=== PATIENT | male | born 1935 | race Caucasian/White ===

== ENCOUNTER → 2018-08-19 | Outpatient (CLI) | payer OTHER ==
[~2018-08-19] MED LIST: CARV6.25 PO; DICL100ER PO; DIFL500 PO; DOCU100 PO; ENTRESTO 24 MG1 EACH; Flecainide Ace150 MG PO; Flecainide Acet50 MG PO; HYDACE5; HYDACE5 PO; HYDR1TAB94; Hydrocodone-Ap1 EA23; LOSA25 PO; METF500 PO; Omeprazole20 M1; PIRO20; PIRO20 PO; TAMS.4ER PO; VITAMIN D PO; WARF2 PO; WARF2.5 PO; WARF3 PO; WARF5 PO; ZOLP10 PO
== END | disposition home or self-care (01) ==
LOC: PLD 15:05 → LAB SHORT 15:05
DX: D48.5 Neoplasm of uncertain behavior of skin (principal)
CPT/HCPCS: 88305

== ENCOUNTER 2020-09-08 09:12 | Day surgery (SDC) | payer OTHER ==
[~2020-09-08] VITALS: Ht 177.8 cm; Wt 89.0 kg
[~2020-09-08 09:12] MED LIST changes: +ALBU90OI INH; +ELIQUIS2.5 MG PO; +MAGNESIUM OXID500 MG PO; +MULVITA PO; +OMEP20ER PO; +Vitamin D2000 UNIT PO; +ZINC15 PO
[2020-09-08] MEDS ORDERED: CARV3.125 PO (09:58)
[2020-09-08] MEDS ORDERED: Norco 5-325 Ta1 EACH PO (10:00)
--- NOTE | 2020-09-08 11:30 | NUR ---
PATIENT RETURNED FROM THE [facility] VIA RECLINER. SBAR RECEIVED FROM THE IMAN WARREN. TR BAND WITH 13 ML OF AIR AT 1119.
--- NOTE | 2020-09-08 12:02 | NUR ---
DR. MADDOX AT THE BEDSIDE AND SPOKE WITH THE PATIENT AND .
--- NOTE | 2020-09-08 14:39 | NUR ---
DISCHARGE PT REMAINED A&OX3 AND DENIED ANY PAIN DURING RECOVERY. RIGHT RADIAL SITE-TR BAND REMOVED, WHITE BOARD AND CLOTH DOT BANDAGE IN PLACE-CDI NO HEMATOMA NOTED. IV DC'D WITH CANULA IN TACT. DISCHARGE PAPERWORK GONE OVER WITH PT AND SPOUSE. PT AND SOUSE VERBALLY STATED THE UNDERSTANDING OF THE DISCHARGE EDUCATION AND DENIED ANY QUESTIONS AT THIS TIME. PT ABLE TO DRESS SELF WITH LITTLE ASSISTANCE. PT WHEELED OUT BY THIS NURSE.
== END 2020-09-08 15:00 | disposition home or self-care (01) ==
LOC: MHTC 09:12
DX: I25.10 Atherosclerotic heart disease of native coronary artery without angina pectoris (principal); I42.8 Other cardiomyopathies; I48.0 Paroxysmal atrial fibrillation; I50.9 Heart failure, unspecified; J84.10 Pulmonary fibrosis, unspecified; N18.9 Chronic kidney disease, unspecified; E66.3 Overweight; Z85.6 Personal history of leukemia; Z92.21 Personal history of antineoplastic chemotherapy; Z87.891 Personal history of nicotine dependence; Z88.7 Allergy status to serum and vaccine; Z88.8 Allergy status to other drugs, medicaments and biological substances; Z79.01 Long term (current) use of anticoagulants; Z82.49 Family history of ischemic heart disease and other diseases of the circulatory system; Z68.28 Body mass index [BMI] 28.0-28.9, adult; Z95.0 Presence of cardiac pacemaker
CPT/HCPCS: 76937; 85347; 93458; 93571; 99152; 99153; A9270; C1769; C1887; C1894; J1644; J2250; J2370; J3010; J7030; J7050; Q9967

== ENCOUNTER 2020-10-18 00:08 | Day surgery (SDC) | payer OTHER ==
[~2020-10-18 00:08] MED LIST changes: +CARV3.125 PO; +Norco 5-325 Ta1 EACH PO
== END 2020-10-18 22:41 | disposition home or self-care (01) ==
LOC: WOUND 00:08
DX: L89.312 Pressure ulcer of right buttock, stage 2 (principal); Z88.8 Allergy status to other drugs, medicaments and biological substances; Z88.7 Allergy status to serum and vaccine; Z87.891 Personal history of nicotine dependence
CPT/HCPCS: A9270; G0463

== ENCOUNTER 2020-10-25 00:12 | Day surgery (SDC) | payer OTHER | END 2020-10-25 22:47 | disposition home or self-care (01) | LOC: WOUND 00:12 | DX: L89.312 Pressure ulcer of right buttock, stage 2 (principal); I42.9 Cardiomyopathy, unspecified; J84.10 Pulmonary fibrosis, unspecified | CPT/HCPCS: A9270 ==

== ENCOUNTER 2020-11-01 00:11 | Day surgery (SDC) | payer OTHER | END 2020-11-01 22:55 | disposition home or self-care (01) | LOC: WOUND 00:11 | DX: L89.312 Pressure ulcer of right buttock, stage 2 (principal) | CPT/HCPCS: A9270 ==

== ENCOUNTER 2020-11-15 00:37 | Day surgery (SDC) | payer OTHER | END 2020-11-15 22:53 | disposition home or self-care (01) | LOC: WOUND 00:37 | DX: L89.312 Pressure ulcer of right buttock, stage 2 (principal) | CPT/HCPCS: A9270 ==

== ENCOUNTER 2020-11-22 01:04 | Day surgery (SDC) | payer OTHER | END 2020-11-22 23:05 | disposition home or self-care (01) | LOC: WOUND 01:04 | DX: L89.312 Pressure ulcer of right buttock, stage 2 (principal) | CPT/HCPCS: A9270; G0463 ==

== ENCOUNTER 2020-12-06 00:39 | Day surgery (SDC) | payer OTHER | END 2020-12-06 23:31 | disposition home or self-care (01) | LOC: WOUND 00:39 | DX: L89.312 Pressure ulcer of right buttock, stage 2 (principal); I42.9 Cardiomyopathy, unspecified; J84.10 Pulmonary fibrosis, unspecified | CPT/HCPCS: A9270; G0463 ==

== ENCOUNTER 2020-12-20 08:00 | Day surgery (SDC) | payer OTHER | END 2020-12-20 23:00 | disposition home or self-care (01) | LOC: WOUND | DX: L89.312 Pressure ulcer of right buttock, stage 2 (principal) | CPT/HCPCS: G0463 ==

== ENCOUNTER → 2022-06-29 | Outpatient (CLI) | payer OTHER | END | disposition home or self-care (01) | LOC: PLD 15:14 → LAB SHORT 15:14 | DX: C44.42 Squamous cell carcinoma of skin of scalp and neck (principal) | CPT/HCPCS: 88305 ==

== ENCOUNTER → 2022-12-15 | Outpatient (CLI) | payer OTHER ==
[2022-12-15 23:09] LABS: Creatinine, Urine Random 51.9 mg/dL (27.00-270.00); Protein, Urine Random 7.6 mg/dL (0.0-11.9); Protein/Creat Ratio, Ur Random 0.1
== END | disposition home or self-care (01) ==
LOC: LAB SHORT 12:00 → LAB 12:00
PROVIDERS: Internal Medicine Nephrology
DX: N18.32 Chronic kidney disease, stage 3b (principal)
CPT/HCPCS: 82570; 84156

== ENCOUNTER → 2023-01-31 | Outpatient (CLI) | payer OTHER | END | disposition home or self-care (01) | LOC: PLD 15:20 → LAB 15:20 → LAB SHORT 15:20 | DX: D48.5 Neoplasm of uncertain behavior of skin (principal) | CPT/HCPCS: 88305 ==

== ENCOUNTER → 2023-04-04 | Outpatient (CLI) | payer OTHER | LOC: LAB 15:01 → LAB SHORT 15:01 | DX: L08.0 Pyoderma (principal) | CPT/HCPCS: 87070; 87077; 87147; 87186; 87205 ==

== ENCOUNTER → 2023-07-10 | Outpatient (CLI) | payer OTHER | LOC: LAB SHORT 11:43 → LAB 11:43 | DX: D48.5 Neoplasm of uncertain behavior of skin (principal) | CPT/HCPCS: 88305 ==

== ENCOUNTER 2024-01-14 11:21 | Observation (INO) | payer OTHER ==
[~2024-01-14] VITALS: Ht 177.8 cm; Wt 87.9 kg
[~2024-01-14 11:21] MED LIST changes: -ENTRESTO 24 MG1 EACH; +ENTRESTO 49 MG1 EAC3 PO; -PIRO20
[2024-01-14] MEDS ORDERED: Dextrose 50% 50 ML Vial IV ONE (12:40)
[2024-01-14] MEDS ORDERED: Insulin Regular 100 Unit/ML 1ML Dose IV ONE (12:40)
[2024-01-14] MEDS ORDERED: CALCIUM GLUC IN NACL, ISO-OSM 50 ML IV ONE (12:50)
[2024-01-14] MEDS ORDERED: Furosemide 10 MG / ML 2ML Vial IV ONE (13:30)
[2024-01-14] MEDS ORDERED: OxyCODONE HCL 5 MG TAB PO PRN (15:00)
[2024-01-14] MEDS ORDERED: Acetaminophen 325 MG TABLET PO PRN (15:00)
--- NOTE | 2024-01-14 16:59 | NUR ---
RECEIVED REPORT FROM IMAN MOORE, IN ED.
[2024-01-14] MEDS ORDERED: Carvedilol 3.125 MG Tab PO SCH (17:00)
[2024-01-14 17:26] VITALS: BP 93/82
[2024-01-14] MEDS ORDERED: TORSE20 PO (18:00)
[2024-01-14] MEDS ORDERED: Bumetanide 0.25 MG/ML 4ML ViaL IV SCH (18:00)
--- NOTE | 2024-01-14 19:10 | NUR ---
DAY SHIFT SUMMARY: A&Ox4. PLEASANT AND COOPEARTIVE WITH CARE. CALLS APPROPRIATELY AND IS ABLE TO ADVOCATE NEEDS EFFECTIVELY. AMBULATES INDEPENDENTLY AT BASELINE; RECOMMEND SBA SINCE SLIGHTLY UNSTEADY ON FEET TODAY. IV DIURETICS WITH STRICT I/Os. MEDS WHOLE WITH FLUIDS. O2 2-3LPM/NC. TELE PACED @ 60. AND SISTER AT BEDSIDE FROM ADMIT TO THIS EVENING. MEDICATED PRN PAIN x1. C/O IV IRRITATING HIM; LET HIM KNOW IT MAY NEED TO BE CHANGED IF TOO BOTHERSOME, BUT HE STATES HED' RATHER "DEAL WITH IT" IT'S ONLY WHEN BENDING ARM TO EAT. DR CAMPOS CONSULTED VIA TELEHEALTH. BED IN LOWEST POSITION. CALL LIGHT WITHIN REACH. ALL NEEDS MET. REPORT TO ONCOMING RN.
[2024-01-14 19:24] VITALS: BP 110/57
[2024-01-14] MEDS ORDERED: Sacubitril/Valsartan 24 MG-26 MG Tab PO SCH (21:00)
[2024-01-14] MEDS ORDERED: Apixaban 5 MG Tab PO SCH (21:00)
[2024-01-14] MEDS ORDERED: HYDROcodone 5-APAP 325 TAB PO PRN (22:05)
[2024-01-14] MEDS ORDERED: Melatonin 5 MG Tablet PO ONE (23:05)
--- NOTE | 2024-01-15 04:02 | NUR ---
@HS, THIS CRYPTOGRAPHER CALLED THE ON-CALL HOSPITALIST, SUBHA. PER PT REPORT, HIS HOME MED INCLUDES PO NORCO 5/325MG Q6 PRN (CHRONIC BACK PAIN, HX OF BACK SURGERIES.) PER MACY WALTERS'S T-ORDER:"D/C OXYCODONE 5MG PO Q6PRN, NEW ORDER: NORCO 5/325MG PO Q6 PRN, AND NEW ORDER: MELATONIN 5MG PO QHS PRN." ORDERS ENTERED TO [employer]/[facility]. PT REQUESTED MELATONIN AND NORCO AT HS, GOOD EFFECTIVNESS. NO OTHER NEW ORDERS AT THIS TIME.
--- NOTE | 2024-01-15 04:08 | NUR ---
SHIFT SUMMARY PT IS A&O X4, ABLE TO MAKE HIS NEEDS KNOWN, COOP WITH CARE. PT AMBULATES INDEPENDENTLY IN THE HOSPITAL ROOM AND USES THE RESTROOM. URINAL BY THE BEDSIDE. EDEMA LE BILATERALLY 2+, NON PITTING. PRN NORCO 5/325MG ADMINISTERED AT HS (SEE PREVIOUS NOTE FOR PAIN MED CHANGES,) AND MELATONIN 5MG PO ORDERED. PER PT REPORT, HX OF BACK SURGERIES, AND REPORTS CHRONIC BACK PAIN 11/18. PT IS ON O2@ 2L VIA NC. LUNGS DIMINISHED PER AUSCULTATION, NO COUGH NOTED/REPORTED. PT DENIES SOB DURING THIS SHIFT, O2 SAT'S>94. NO ACUTE EVENTS DURING THIS SHIFT, CALL LIGHT WITHIN REACH. URINE LAB COLLECTED AND SENT TO LAB AT HS.
[2024-01-15 05:01] VITALS: BP 111/80
[2024-01-15 05:46] LABS: BASOPHILS ABSOLUTE AUTO 0.03 K/mm3 (0.00-0.23); BASOPHILS PERCENT AUTO 0 % (0-2); EOSINOPHILS ABSOLUTE AUTO 0.18 K/mm3 (0.00-0.68); EOSINOPHILS PERCENT AUTO 2 % (0-6); Hematocrit 36.3 % (37.0-53.0); Hemoglobin 11.1 g/dL (13.5-17.5); IMMATURE GRAN ABSOLUTE AUTO 0.02 K/mm3 (0.00-0.10); IMMATURE GRAN PERCENT AUTO 0 % (0-1); LYMPHOCYTES ABSOLUTE AUTO 2.75 K/mm3 (0.84-5.20); LYMPHOCYTES PERCENT AUTO 34 % (21-46); MONOCYTES ABSOLUTE AUTO 1.04 K/mm3 (0.16-1.47); MONOCYTES PERCENT AUTO 13 % (4-13); Mean Corpuscular HGB 28.4 pg (26.0-34.0); Mean Corpuscular HGB Conc 30.6 g/dL (31.5-36.5); Mean Corpuscular Volume 93 fL (80-100); Mean Platelet Volume 9.8 fL (9.1-12.4); NEUTROPHILS ABSOLUTE AUTO 4.04 K/mm3 (1.96-9.15); NEUTROPHILS PERCENT AUTO 50 % (41-73); Platelet Count 150 K/mm3 (150-400); RDW Coefficient Variation 14.6 % (11.7-14.2); RDW Standard Deviation 49.7 fL (35.1-46.3); Red Blood Cell Count 3.91 M/mm3 (4.30-5.90); White Blood Cell Count 8.06 K/mm3 (4.00-11.30)
[2024-01-15 06:16] LABS: Albumin, Blood 3.5 g/dL (3.4-5.0); Anion Gap 7 mmol/L (3-11); Blood Urea Nitrogen 50 mg/dL (8-24); Bun/Creatinine Ratio 18.8 (12.0-20.0); CO2, Blood 32 mmol/L (21-32); Calcium, Blood 9.2 mg/dL (8.5-10.1); Chloride, Blood 104 mmol/L (98-108); Creatinine, Blood 2.66 mg/dL (0.60-1.20); Glomerular Filtration Rate 23 (60-); Glucose, Blood 99 mg/dL (70-99); Potassium, Blood 5.3 mmol/L (3.5-5.5); Sodium, Blood 138 mmol/L (136-145)
[2024-01-15 07:54] VITALS: BP 114/65
[2024-01-15 15:08] VITALS: BP 100/76
[2024-01-15 19:22] VITALS: BP 105/64
--- NOTE | 2024-01-15 19:36 | NUR ---
SHIFT SUMMARY: PT IS A/O X 4, IND IN ROOM PLEASANT AND COOOPERATIVE. PT CONTINUES TO BE ON 2.5 LPM VIA NC WHICH IS HIS BASELINE O2 NEEDS. PT REPORTS EDEMA TO BLE EXT MUCH IMPROVED. PT TOLERATING PO INTAKE WELL. WORKED WITH PT TODAY AND RECOMMENDED HH.
[2024-01-15] MEDS ORDERED: Melatonin 5 MG Tablet PO SCH (21:00)
[2024-01-16 02:23] VITALS: BP 107/53
--- NOTE | 2024-01-16 03:09 | NUR ---
SHIFT SUMMARY PT REPORTED THAT WORKED HARD WITH PT DURING PREVIOUS SHIFT, AND FOLLOWED PT ORDERS AND EXERCISED INDEPENDENTLY IN THE HOSPITAL ROOM WELL. C/O LEG AND LOWER BACK PAIN, MEDICATED X2 WITH NORCO, AND X1 WITH TYLENOL DURING THIS SHIFT. 02 VIA NC 2L. NO ACUTE EVENTS DURING THIS SHIFT. PT HAS HAD BROKEN SLEEP DURING THIS SHIFT. CALL LIGHT IN REACH.
--- NOTE | 2024-01-16 06:37 | NUR ---
PT CONTINUES TO HAVE A GOOD URINE OUTPUT, PER COMPUTER TECHNOLOGY TRAINER ON THIS SHIFT:>1.5LITERS.
[2024-01-16 07:13] VITALS: BP 110/61
[2024-01-16] MEDS ORDERED: Ipratropium/Albuterol SulF 2.5-0.5MG/3 ML Amp INH SCH (09:25)
[2024-01-16 12:26] LABS: Albumin, Blood 3.3 g/dL (3.4-5.0); Anion Gap 7 mmol/L (3-11); Blood Urea Nitrogen 47 mg/dL (8-24); Bun/Creatinine Ratio 19.3 (12.0-20.0); CO2, Blood 32 mmol/L (21-32); Calcium, Blood 8.8 mg/dL (8.5-10.1); Chloride, Blood 102 mmol/L (98-108); Creatinine, Blood 2.44 mg/dL (0.60-1.20); Glomerular Filtration Rate 25 (60-); Glucose, Blood 155 mg/dL (70-99); Phosphorus, Blood 4.1 mg/dL (2.5-4.9); Potassium, Blood 4.5 mmol/L (3.5-5.5); Sodium, Blood 136 mmol/L (136-145)
[2024-01-16 12:53] VITALS: BP 109/71
--- NOTE | 2024-01-16 12:57 | NUR ---
CALL CALL FROM [employer] THAT PT HAD 9 BEAT RUN VTACH. PT RESTING, DENIES ANY NEW SYMPTOMS OR CONCERNS, NO PAIN, NO SOB. VITAL SIGNS STABLE. DR GRACIA NOTIFIED. NO NEW ORDERS.
[2024-01-16 15:03] VITALS: BP 112/52
[2024-01-16] MEDS ORDERED: Polyethylene Glycol 3350 17 gm PO PRN (17:40)
--- NOTE | 2024-01-16 17:56 | NUR ---
SHIFT SUMMARY MR DAUGHERTY WAS EDUCATED ON INCENTIVE SPIROMETRY USE - 500CC WITH GOOD TECHNIQUE. UP TO BATHROOM INDEPENDENTLY WITH GOOD UOP. HE C/O CHRONIC BACK PAIN, MEDICATED WITH NORCO AND TYLENOL WITH SOME RELIEF. ON TELEMETRY - PACED WITH 9 BEAT RUN OF VTACH. AT THE TIME MR DAUGHERTY WAS NOT EXPERIENCING ANY NEW SYMPTOMS AND VITAL SIGNS WERE STABLE. MR DAUGHERTY IS ON 2-3L O2 NASAL CANNULA AT HOME WHEN HE'S SLEEPING OR EXERTING HIMSELF. HE HAS BEEN ON ROOM AIR TODAY AND USES 2L N/C WHEN HE FEELS SHORT OF BREATH ON AND OFF. BED LOW, CALL LIGHT IN REACH.
[2024-01-16 19:32] VITALS: BP 112/59
[2024-01-16] MEDS ORDERED: Torsemide 20 MG TAB PO SCH (21:00)
[2024-01-16] MEDS ORDERED: Docusate Sodium 100 MG Cap PO SCH (21:00)
[2024-01-17 03:14] VITALS: BP 122/88
--- NOTE | 2024-01-17 05:32 | NUR ---
SHIFT SUMMARY PT A&Ox4 AND PLEASANT. NO ACUTE CHANGES. PT MEDICATD FOR PAIN PER [facility]. ASSISTED PT WITH HEAT PACK FOR BACK PAIN AT HS. PT ON 2L OF OXYGEN DURING THE NIGHT. VSS. BED IN LOWEST POSITION AND CALL LIGHT IN REACH.
[2024-01-17 06:51] LABS: Albumin, Blood 3.3 g/dL (3.4-5.0); Anion Gap 11 mmol/L (3-11); Blood Urea Nitrogen 46 mg/dL (8-24); CO2, Blood 30 mmol/L (21-32); Calcium, Blood 8.4 mg/dL (8.5-10.1); Chloride, Blood 101 mmol/L (98-108); Creatinine, Blood 2.56 mg/dL (0.60-1.20); Glomerular Filtration Rate 24 (60-); Glucose, Blood 98 mg/dL (70-99); Magnesium, Blood 2.1 mg/dL (1.6-2.4); Phosphorus, Blood 5.2 mg/dL (2.5-4.9); Sodium, Blood 137 mmol/L (136-145)
[2024-01-17 07:38] VITALS: BP 103/59
[2024-01-17 08:10] VITALS: BP 108/62
[2024-01-17] MEDS ORDERED: MIRALAX17 GM PO (11:31)
--- NOTE | 2024-01-17 13:02 | NUR ---
SHIFT/DISCHARGE SUMMARY: PATIENT A/OX4, CALM, PLEASANT AND COOPERATIVE c CARE. PATIENT REPORTS CHRONIC BACK PAIN, MEDICATED c [facility] PAIN MEDS c GOOD RELIEF. PATIENT DENIES CP/PRESSURE, SOB, N/V AND DIZZINESS. PATIENT HAS NO EVENT ON TELE, VPACED HR IN THE LOW 60'S BPM c OCCASIONAL PVC. PATIENT USES O2 AT HS 2-3L NC, RA, LUNGS HAS FINE CRACKLES TO THE BASES. PATIENT RECEIVED SCHEDULED MEDS PER [facility]. PATIENT HAS GOOD APPETITE, CONTINENT OF BLADDER, AMBULATES TO BATHROOM INDEPENDENTLY T/O THE DAY. PIV DC'D BY [employer] MEDIA SPECIALIST. PATIENT DISCHARGE HOME. DISCHARGE INSTRUCTIONS PACKET GIVEN TO PATIENT. EDUCATED PATIENT REGARDING ADMITTING DX'S OF ACUTE RESP FAILURE c HYPOXIA, S/S, TX, SELF CARE, NEW PRESCRIBED RX AND TO F/U c PCP AND NEPHROLOGY. PATIENT VERBALIZED UNDERSTANDING AND NO FURTHER QUESTIONS AT THIS TIME. RX WAS FAXED TO PATIENT PREFERRED PHARMACY. ALL PATIENT PERSONAL BELONGINGS WERE SENT HOME c THE PATIENT. PATIENT LEFT THE ROOM AT 1302, TRANSPORTED VIA WHEELCHAIR BY [employer] TO PATIENT ENTRANCE.
== END 2024-01-17 13:01 | disposition home or self-care (01) ==
LOC: ER 11:21 → ERHOLD 11:22 → MEDS 11:22
PROVIDERS: Internal Medicine Nephrology; ADMIT Internal Medicine
DX: I13.0 Hypertensive heart and chronic kidney disease with heart failure and stage 1 through stage 4 chronic kidney disease, or unspecified chronic kidney disease (principal); I50.43 Acute on chronic combined systolic (congestive) and diastolic (congestive) heart failure; N18.30 Chronic kidney disease, stage 3 unspecified; J96.21 Acute and chronic respiratory failure with hypoxia; N17.9 Acute kidney failure, unspecified; E87.5 Hyperkalemia; J84.10 Pulmonary fibrosis, unspecified; I47.20 Ventricular tachycardia, unspecified; G89.29 Other chronic pain; M54.9 Dorsalgia, unspecified; I48.91 Unspecified atrial fibrillation; I27.20 Pulmonary hypertension, unspecified; I07.1 Rheumatic tricuspid insufficiency; Z88.7 Allergy status to serum and vaccine; Z88.8 Allergy status to other drugs, medicaments and biological substances; Z79.01 Long term (current) use of anticoagulants; Z79.899 Other long term (current) drug therapy; J84.9 Interstitial pulmonary disease, unspecified; R91.8 Other nonspecific abnormal finding of lung field; I50.9 Heart failure, unspecified
CPT/HCPCS: 36415; 71046; 80053; 80069; 82570; 83735; 83880; 84145; 84156; 84484; 85025; 93005; 93010; 93306; 94640; 94664; 94760; 96374-59; 96375; 96375-59; 96376; 97110; 97116; 97161; 99285-25; A9270; G0378; J0612; J1815; J1940; J7799

== ENCOUNTER 2024-05-08 17:46 | Emergency (ER) | payer OTHER ==
[~2024-05-08] VITALS: Ht 175.3 cm; Wt 70.3 kg
[~2024-05-08 17:46] MED LIST changes: +MIRALAX17 GM PO; +TORSE20 PO
[2024-05-08] MEDS ORDERED: Calcium Chloride 10% 10 ML SYR IV ONE (20:32)
[2024-05-08] MEDS ORDERED: Sodium Bicarb 8.4% 50 mEq Syringe IV ONE (20:32)
[2024-05-08] MEDS ORDERED: Amiodarone HCl 50 MG / ML 3 ML Amp IV ONE (20:32)
[2024-05-08] MEDS ORDERED: EPINEPhrine HCl 0.1 MG/ML 10ML SYR IV ONE (20:32)
== END 2024-05-08 20:34 ==
LOC: ER 17:46
DX: I46.9 Cardiac arrest, cause unspecified (principal); I48.91 Unspecified atrial fibrillation; Z79.899 Other long term (current) drug therapy; Z88.7 Allergy status to serum and vaccine; Z88.8 Allergy status to other drugs, medicaments and biological substances
CPT/HCPCS: 92950; 99285-25; J0171; J0282; J7060